=== PATIENT | female | born 1995 | race Caucasian/White ===

== ENCOUNTER 2017-05-28 12:46 | Emergency (ER) | payer OTHER ==
[~2017-05-28] VITALS: Ht 182.9 cm; Wt 111.6 kg
== END 2017-05-28 13:27 | disposition home or self-care (01) ==
LOC: ED 12:46
PROC: 0HQGXZZ Repair Left Hand Skin, External Approach (ICD-10-PCS; principal; 2017-05-28)
DX: S61.211A Laceration without foreign body of left index finger without damage to nail, initial encounter (principal); W26.0XXA Contact with knife, initial encounter
CPT/HCPCS: 12001; 99282

== ENCOUNTER 2017-10-21 13:14 | Emergency (ER) | payer OTHER ==
[~2017-10-21] VITALS: Ht 182.9 cm; Wt 111.6 kg
[2017-10-21] MEDS ORDERED: NAPROXEN500 MG PO (15:09)
[2017-10-21] MEDS ORDERED: CYCLOBENZAPRINE10 MG PO (15:10)
== END 2017-10-21 18:33 | disposition home or self-care (01) ==
LOC: ED 13:14
DX: R00.2 Palpitations (principal); T39.315A Adverse effect of propionic acid derivatives, initial encounter; M79.1 Myalgia; F17.200 Nicotine dependence, unspecified, uncomplicated; Z79.899 Other long term (current) drug therapy
CPT/HCPCS: 99282